=== PATIENT | male | born 1990 | race American Indian/Alaskan Native ===

== ENCOUNTER 2021-07-20 18:12 | Emergency (ER) | payer SELFPAY ==
[2021-07-20 18:37] VITALS: BP 130/72
[2021-07-20] MEDS ORDERED: traMADol 50 MG TAB PO ONE (20:18)
[2021-07-20] MEDS ORDERED: IBUPROFEN 600 MG TAB PO ONE (20:18)
[2021-07-20] MEDS ORDERED: ONDANSETRON 4 MG ODT TAB PO ONE (20:19)
--- NOTE | 2021-07-20 20:27 | Emergency Department Report ---
ED Upper Extremity Inj HPI - General Chief Complaint: Extremity Injury, Upper Stated Complaint: FELL AT WORK LT HAND PAIN Source: patient Mode of arrival: Ambulatory Limitations: No Limitations - History of Present Illness Initial Comments: Patient is a 30-year-old -[place] male with a history of anxiety and depression and bipolar disorder who presents to the ED with complaint of acute onset persistent severe left hand pain with swelling after he slipped and fell down at work about 8 hours ago landing on the left hand dorsally. Patient states that he has previously had a fracture on his left hand and was scared that he may have refractured his left hand during this fall. Patient states that he is unable perform any active range of motion with the left hand because of persistent severe pain and swelling. Patient denies head or neck injuries, dizziness, syncope, seizures, nausea and vomiting, numbness and tingling or weakness of upper and lower extremities bilaterally or low back pain, loss of consciousness and headache. MD Complaint: Injury to:: left, hand (pain and injury) -: Sudden, hour(s) (8), This afternoon Other Extremity Injury: Hand: Left (pain, swelling) Other Injuries: none Handedness: right Severity scale (0 -10): 8 Improves With: rest Worsens With: movement of extremity Context: fall, direct blow (fell and landed on left hand), injury Associated Symptoms: denies other symptoms. denies: weakness, numbness, neck pain, suspects foreign body, nausea/vomiting, heard/felt popping sensat Treatments Prior to Arrival: other (none) - Related Data Previous Rx's Medication Instructions Recorded Last Taken Type Ibuprofen [Motrin] 600 mg PO Q8H PRN #30 tablet 07/20/21 Unknown Rx traMADoL [Ultram] 50 mg PO Q6HR PRN #12 tablet 07/20/21 Unknown Rx Allergies Allergy/AdvReac Type Severity Reaction Status Date / Time acetaminophen [From Tylenol] Allergy Unknown Verified 07/20/21 18:37 ED Review of Systems ROS: Stated complaint: FELL AT WORK LT HAND PAIN Other details as noted in HPI Constitutional: denies: chills, fever Eyes: denies: eye pain, eye discharge, vision change ENT: denies: ear pain, throat pain Respiratory: denies: cough, shortness of breath, wheezing Cardiovascular: denies: chest pain, palpitations Endocrine: no symptoms reported Gastrointestinal: denies: abdominal pain, nausea, diarrhea Genitourinary: denies: urgency, dysuria Musculoskeletal: joint swelling (left hand swelling), arthralgia (left hand pain and swelling). denies: back pain Skin: denies: rash, lesions Neurological: denies: headache, weakness, paresthesias Psychiatric: denies: anxiety, depression Hematological/Lymphatic: denies: easy bleeding, easy bruising ED Past Medical Hx - Past Medical History Hx Psychiatric Treatment: Yes (anxiety, depression, Bipolar d/o) - Medications Home Medications: Home Medications Medication Instructions Recorded Confirmed Last Taken Type Ibuprofen [Motrin] 600 mg PO Q8H PRN #30 tablet 07/20/21 Unknown Rx traMADoL [Ultram] 50 mg PO Q6HR PRN #12 tablet 07/20/21 Unknown Rx ED Physical Exam - General Limitations: No Limitations General appearance: alert, in no apparent distress - Head Head exam: Present: atraumatic, normocephalic, normal inspection - Eye Eye exam: Present: normal appearance, PERRL, EOMI Pupils: Present: normal accommodation - ENT ENT exam: Present: normal exam, normal orophraynx, mucous membranes moist, TM's normal bilaterally, normal external ear exam - Neck Neck exam: Present: normal inspection, full ROM. Absent: tenderness - Respiratory Respiratory exam: Present: normal lung sounds bilaterally. Absent: respiratory distress, wheezes, rales, rhonchi, chest wall tenderness, accessory muscle use, decreased breath sounds, prolonged expiratory - Cardiovascular Cardiovascular Exam: Present: regular rate, normal rhythm, normal heart sounds. Absent: systolic murmur, diastolic murmur, rubs, gallop - GI/Abdominal GI/Abdominal exam: Present: soft, normal bowel sounds. Absent: tenderness, guarding, rebound, hyperactive bowel sounds, hypoactive bowel sounds, organomegaly - Extremities Exam Extremities exam: Present: normal inspection, tenderness (Plapable left hand tenderness and mild swelling with limited ROM due to pain), normal capillary refill, joint swelling (mild left hand swelling). Absent: full ROM (limited ROM due to pain), pedal edema, calf tenderness - Back Exam Back exam: Present: normal inspection, full ROM. Absent: tenderness, CVA tenderness (R), CVA tenderness (L), muscle spasm, paraspinal tenderness, vertebral tenderness - Neurological Exam Neurological exam: Present: alert, oriented X3, CN II-XII intact, normal gait, reflexes normal - Psychiatric Psychiatric exam: Present: normal affect, normal mood - Skin Skin exam: Present: warm, dry, intact, normal color. Absent: rash ED Course Vital Signs 07/20/21 18:34 Temperature 99.6 F Pulse Rate 72 Respiratory 16 Rate Blood Pressure 130/72 [Left] O2 Sat by Pulse 100 Oximetry ED Medical Decision Making - Radiology Data Radiology results: report reviewed, image reviewed [facility] [address] [place] [address] XRay Report Signed Patient: KATYA SANTOS MR#: [id number] 06 : 1990 Acct:[id number] Age/Sex: 30 / M ADM Date: 07/20/21 Loc: ED Attending Dr: Ordering Physician: GISSELL GUERRIER Date of Service: 07/20/21 Procedure(s): XR hand 3+V LT Accession Number(s): [id number] cc: GISSELL GUERRIER Fluoro Time In Minutes: Left hand 3 views INDICATION: Left hand pain. Injury IMPRESSION: No fracture or subluxation of the left hand is identified. Promin ent swelling along the dorsal aspect of the hand. Signer Name: Oscar Bolanos MD Signed: 07/20/2021 8:41 PM Workstation Name: [id number] Transcribed By: BC Dictated By: Oscar Bolanos MD Electronically Authenticated By: Oscar Bolanos MD Signed Date/Time: 07/20/212040 DD/ 39 TD/TT: - Medical Decision Making This is a 30-year-old -[place] male with a history of anxiety and depression and bipolar disorder who presents to the ED with complaint of acute onset persistent severe left hand pain with swelling after he slipped and fell down at work about 8 hours ago landing on the left hand dorsally. Patient states that he has previously had a fracture on his left hand and was scared that he may have refractured his left hand during this fall. Patient states that he is unable perform any active range of motion with the left hand because of persistent severe pain and swelling. In the ED, patient is alert and oriented x3 and is not in any distress but appears to be in significant pain. Patient is hemodynamically stable. Patient was treated for pain in the ED and left hand x-ray showed no acute fractures or subluxation but soft tissue swelling on the dorsal aspect of the left hand. On reevaluation, patient's pain is well controlled medications. Patient the history and physical exam findings, and imaging report, patient symptoms are likely musculoskeletal following the injury at work. Patient will discharge home on pain medications and advised to follow-up with his primary care physician in 5 to 7 days for reevaluation. Patient was advised return to the ED immediately if symptoms get worse. - Differential Diagnosis hand fracture; hand contusion; hand sprain; muscle strain Critical care attestation.: If time is entered above; I have spent that time in minutes in the direct care of this critically ill patient, excluding procedure time. ED Disposition Clinical Impression: Sprain of carpometacarpal joint of left hand Qualifiers: Encounter type: initial encounter Qualified Code(s): S63.8X2A - Sprain of other part of left wrist and hand, initial encounter Contusion of left hand Qualifiers: Encounter type: initial encounter Qualified Code(s): S60.222A - Contusion of left hand, initial encounter Disposition: HOME / SELF CARE / HOMELESS Is pt being admited?: No Does the pt Need Aspirin: No Condition: Stable Instructions: Intermetacarpal Sprain, Hand Contusion, [id number] Additional Instructions: The left hand x-ray showed no acute fractures or subluxations but soft tissue swelling on the dorsal aspect of the left hand. Your injuries are likely musculoskeletal following the injury at work. Therefore take medication as needed for pain, drink plenty of fluids and follow-up with your primary care physician in 5 to 7 days for reevaluation. Return to the ED immediately if symptoms get worse. Prescriptions: Ibuprofen [Motrin] 600 mg PO Q8H PRN #30 tablet PRN Reason: Pain traMADoL [Ultram] 50 mg PO Q6HR PRN #12 tablet PRN Reason: Pain Referrals: [facility] [Provider Group] - 7-10 days Forms: Work/School Release Form(ED) Time of Disposition: 20:57 Print Language: PARAGUAYAN
--- NOTE | 2021-07-20 20:45 | XRay Report ---
Left hand 3 views INDICATION: Left hand pain. Injury IMPRESSION: No fracture or subluxation of the left hand is identified. Prominent swelling along the d orsal aspect of the hand. Signer Name: Oscar Bolanos MD Signed: 07/20/2021 8:41 PM Workstation Name: [id number]
== END 2021-07-20 21:33 | disposition home or self-care (01) ==
LOC: ED 18:12
DX: S63.8X2A Sprain of other part of left wrist and hand, initial encounter (principal); F41.9 Anxiety disorder, unspecified; F31.9 Bipolar disorder, unspecified; Z88.6 Allergy status to analgesic agent; Z79.899 Other long term (current) drug therapy; W18.39XA Other fall on same level, initial encounter; Y93.89 Activity, other specified; Y92.89 Other specified places as the place of occurrence of the external cause; Y99.8 Other external cause status
CPT/HCPCS: 99283; Q0162

== ENCOUNTER 2022-04-21 23:32 | Emergency (ER) | payer SELFPAY ==
[2022-04-21 23:39] VITALS: BP 149/100
== END 2022-04-22 01:00 | disposition left against medical advice (07) ==
LOC: ED 23:32
DX: Z04.1 Encounter for examination and observation following transport accident (principal); Z53.21 Procedure and treatment not carried out due to patient leaving prior to being seen by health care provider; V89.2XXA Person injured in unspecified motor-vehicle accident, traffic, initial encounter; Y93.89 Activity, other specified; Y92.89 Other specified places as the place of occurrence of the external cause; Y99.8 Other external cause status